=== PATIENT | female | born 1930 | race Caucasian/White ===

== ENCOUNTER 2016-10-05 10:51 | Inpatient (IN) | payer MEDICARE, OTHER ==
[2016-10-05] MEDS ORDERED: RINGERS SOLUTION,LACTATED 1,000 ML IV PRN (11:57)
[2016-10-05 12:51] LABS: HEMATOCRIT 41.1 % (36.0-47.0); HEMOGLOBIN 13.1 g/dL (12.0-15.5); HGB HCT DIFFERENCE -1.8; MEAN CORPUSCULAR HEMOGLOBIN 26.7 pg (27.0-33.4); MEAN CORPUSCULAR HGB CONC 31.9 g/dL (32.0-36.0); MEAN CORPUSCULAR VOLUME 84 fl (80-97); RED CELL DISTRIBUTION WIDTH 14.1 % (11.5-14.0); WHITE BLOOD COUNT 13.2 10^3/uL (4.0-10.5)
[2016-10-05 13:12] LABS: ARTERIAL BLOOD BASE EXCESS 6.2 mmol/L
[2016-10-05 13:12] LABS: ALANINE AMINOTRANSFERASE 27 U/L (9-52); ALBUMIN 3.2 g/dL (3.5-5.0); ALKALINE PHOSPHATASE 69 U/L (38-126); ANION GAP 12 (5-19); ASPARTATE AMINO TRANSFERASE 37 U/L (14-36); BILIRUBIN,TOTAL 0.5 mg/dL (0.2-1.3); BLOOD UREA NITROGEN 19 mg/dL (7-20); CARBON DIOXIDE 30 mmol/L (22-30); CHLORIDE 89 mmol/L (98-107); CREATININE RESULT 1.18 mg/dL (0.52-1.25); GLUCOSE 198 mg/dL (75-110); POTASSIUM 3.4 mmol/L (3.6-5.0); SODIUM 131.2 mmol/L (137-145); TOTAL PROTEIN 6.1 g/dL (6.3-8.2)
[2016-10-05] MEDS: NORMAL SALINE 1000 ML 1,000 ML IV PRN (13:15)
[2016-10-05 13:44] LABS: THYROID STIMULATING HORMONE 2.25 uIU/mL (0.47-4.68)
[2016-10-05] MEDS: CEFTRIAXONE 1 GM/D5W RTU 1 GM/50 ML RTUPB IV SCH (14:37)
[2016-10-05] MEDS ORDERED: LEVOFLOXACIN 500 MG/D5W RTU 500 MG/100 ML RTUPB IV ONE (15:00)
--- NOTE | 2016-10-05 15:00 | EKG REPORT ---
SEVERITY:- ABNORMAL ECG - SINUS TACHYCARDIA WITH IRREGULAR RATE 92-127 PROBABLE LEFT VENTRICULAR HYPERTROPHY CONSIDER INFERIOR INFARCT ATRIAL PREMATURE COMPLEXES : Confirmed by: Casandra Mccarthy 05-Oct-2016 14:59:56
[2016-10-05] MEDS ORDERED: IPRATROPIUM/ALBUTEROL 0.5-2.5 MG/3 ML AMPUL NEB PRN (19:49)
[2016-10-05] MEDS ORDERED: DEXTROSE 50%-WATER 25 GM/50 ML DISP.SYRIN IV PRN ×2 (20:09)
[2016-10-05] MEDS ORDERED: DEXTROSE 40% GEL 15 GM TUBE PO PRN ×2 (20:09)
[2016-10-05] MEDS ORDERED: GLUCAGON,HUMAN RECOMB 1 MG INJ IM PRN (20:09)
--- NOTE | 2016-10-05 20:09 | PDOC H&P ---
History of Present Illness Admission Date/PCP: 10/05/16 10:51 AMANDA LOPEZ, History of Present Illness: JESSA QUINN is a 86 year old female with type II diabetes mellitus, she came to the office today for scheduled appointment, she complained of productive cough for the last few days, fever, chills, she said she was supposed to have come to the office for evaluation of her symptoms, but she decided to come today because she has schedule appointment, in the office, she was evaluated, she was found to have a low oxygen saturation on pulse oximetry it was 86% on auscultation,There was crackles in the left lung field and the blood pressure was low about 80 systolic, because of all this findings in the office, she was admitted directly into the hospital. Chest x-ray was done it showed patchy air space disease in the left mid and lower lung , worrisome for pneumonia. There was leukocytosis, WBC was 13,000 with hyponatremia and hypokalemia Past Medical History Cardiac Medical History: Reports: Coronary Artery Disease - STENTS X 3 , Hypertension - LISINOPRIL,HCTZ Endocrine Medical History: Reports: Diabetes Mellitus Type 2 Musculoskeltal Medical History: Reports: Arthritis Psychiatric Medical History: Denies: Depression Past Surgical History Past Surgical History: Reports: Cardiac Catheterization, Coronary Stent, Hysterectomy Social History Smoking Status: Current Every Day Smoker Last Time Smoked: 3 WEEKS AGO Frequency of Alcohol Use: Social Hx Recreational Drug Use: No Drugs: None Hx Prescription Drug Abuse: No Family History Parental Family History Reviewed: Yes Children Family History Reviewed: Yes Sibling(s) Family History Reviewed.: Yes Medication/Allergy Home Medications: Aspirin [Aspirin 81 mg Chewable Tablet] 1 tab PO DAILY 11/05/14 Atorvastatin Calcium 1 tab PO QHS 11/05/14 Glimepiride [Amaryl] 1 tab PO DAILY 11/05/14 Hydrochlorothiazide [Hydrodiuril 25 mg Tablet] 25 mg PO QAM 11/05/14 Losartan Potassium 100 mg PO DAILY 11/05/14 Metoprolol Succinate [Toprol Xl 25 mg Tab.sr] 1 tab PO DAILY 11/05/14 Pioglitazone HCl [Actos 30 mg Tablet] 30 mg PO DAILY 11/05/14 Sitagliptin Phosphate [Januvia] 1 tab PO DAILY 11/05/14 Vit C/E/Zn/Coppr/Lutein/Zeaxan [Preservision Areds 2 Softgel] 1 tab PO DAILY Allergies/Adverse Reactions: No Known Allergies Allergy (Unverified 11/05/14 08:25) Review of Systems Constitutional: PRESENT: anorexia, chills, fever(s), night sweats Cardiovascular: ABSENT: chest pain, dyspnea on exertion, edema, orthropnea, palpitations Respiratory: PRESENT: cough, sputum Gastrointestinal: ABSENT: abdominal pain, constipation, diarrhea, hematemesis, hematochezia, nausea, vomiting Genitourinary: ABSENT: dysuria, hematuria Musculoskeletal: ABSENT: joint swelling Integumentary: ABSENT: rash, wounds Neurological: ABSENT: abnormal gait, abnormal speech, confusion, dizziness, focal weakness, syncope Psychiatric: ABSENT: anxiety, depression, homidical ideation, suicidal ideation Endocrine: ABSENT: cold intolerance, heat intolerance, menstrual abnormalities, polydipsia, polyuria Hematologic/Lymphatic: ABSENT: easy bleeding, easy bruising, lymphadenopathy Physical Exam Vital Signs: Temp Pulse Resp BP Pulse Ox 100.2 F 103 H 20 141/54 H 93 10/05/16 14:56 10/05/16 16:10 10/05/16 14:56 10/05/16 14:56 10/05/16 14:56 Intake & Output 10/04/16 10/05/16 10/06/16 06:59 06:59 06:59 Intake Total 690 Balance 690 Weight 93.81 kg General appearance: PRESENT: well-developed, well-nourished Head exam: PRESENT: atraumatic, normocephalic Eye exam: PRESENT: conjunctiva pink, EOMI, PERRLA Neck exam: PRESENT: full ROM. ABSENT: carotid bruit, JVD, lymphadenopathy, thyromegaly Respiratory exam: PRESENT: crackles Cardiovascular exam: PRESENT: +S1, +S2 Pulses: PRESENT: normal dorsalis pedis pul, +2 pedal pulses bilateral Vascular exam: PRESENT: normal capillary refill GI/Abdominal exam: PRESENT: normal bowel sounds, soft Rectal exam: PRESENT: deferred Neurological exam: PRESENT: alert, awake, oriented to person, oriented to place , oriented to time, oriented to situation, CN II-XII grossly intact Psychiatric exam: PRESENT: appropriate affect, normal mood Skin exam: PRESENT: dry, intact, warm Results Laboratory Results: 10/05/16 12:35 10/05/16 12:35 10/05/16 10/05/16 10/05/16 12:35 12:35 12:35 WBC 13.2 H RBC 4.90 Hgb 13.1 Hct 41.1 MCV 84 MCH 26.7 L MCHC 31.9 L RDW 14.1 H Plt Count 150 Carbonic Acid HCO3/H2CO3 Ratio ABG pH ABG pCO2 ABG pO2 ABG HCO3 ABG O2 Saturation ABG Base Excess FiO2 Sodium 131.2 L Potassium 3.4 L Chloride 89 L Carbon Dioxide 30 Anion Gap 12 BUN 19 Creatinine 1.18 Est GFR ( Amer) 53 L Est GFR (Non-Af Amer) 44 L Glucose 198 H Calcium 8.0 L Total Bilirubin 0.5 AST 37 H ALT 27 Alkaline Phosphatase 69 Total Protein 6.1 L Albumin 3.2 L TSH 2.25 Free T4 1.24 10/05/16 12:47 WBC RBC Hgb Hct MCV MCH MCHC RDW Plt Count Carbonic Acid 1.22 HCO3/H2CO3 Ratio 24:1 ABG pH 7.49 H ABG pCO2 40.6 ABG pO2 69.1 L ABG HCO3 30.1 H ABG O2 Saturation 95.0 ABG Base Excess 6.2 FiO2 2 L Sodium Potassium Chloride Carbon Dioxide Anion Gap BUN Creatinine Est GFR ( Amer) Est GFR (Non-Af Amer) Glucose Calcium Total Bilirubin AST ALT Alkaline Phosphatase Total Protein Albumin TSH Free T4 Impressions: Chest X-Ray 10/05/16 00:00 IMPRESSION: Patchy left-sided airspace disease worrisome for early or developing pneumonia Assessment & Plan - Diagnosis (1) Pneumonia Qualifiers: Pneumonia type: due to unspecified organism Laterality: left Lung location: lower lobe of lung Qualified Code(s): J18.1 - Lobar pneumonia, unspecified organism Is this a current diagnosis for this admission?: YesPlan: She has,, community-acquired pneumonia she will be treated with IV antibiotic, intravenous Levaquin and Rocephin (2) Acute hypoxemic respiratory failure Is this a current diagnosis for this admission?: YesPlan: The PO2/FiO2 ratio is less than 200, she is presently not requiring BiPAP. She is requiring nasal cannula oxygen 2 L (3) Hyponatremia Is this a current diagnosis for this admission?: YesPlan: She has hyponatremia will request a serum osmolality and urine osmolality and urine sodium to further classify the cause of the hyponatremia (4) Hypokalemia Is this a current diagnosis for this admission?: Yes (5) Hypotension Qualifiers: Hypotension type: unspecified hypotension type Qualified Code(s): I95.9 - Hypotension, unspecified Is this a current diagnosis for this admission?: Yes (6) Diabetes mellitus type II, uncontrolled Qualifiers: Diabetes mellitus complication status: with neurologic complications Diabetes mellitus complication detail: with polyneuropathy Diabetes mellitus longterm insulin use: without laborer marine terminal use Qualified Code(s): E11.42 - Type 2 diabetes mellitus with diabetic polyneuropathy; E11.65 - Type 2 diabetes mellitus with hyperglycemia Is this a current diagnosis for this admission?: Yes
[2016-10-05 21:46] LABS: CREATINE KINASE MB 2.58 ng/mL (<4.55); TROPONIN I 0.055 ng/mL
[2016-10-05] MEDS: INSULIN LISPRO 100 UNIT/ML 3 ML VIAL SUBCUT PRN (22:51)
[2016-10-05 22:53] LABS: APPEARANCE,URINE SLIGHTLY-CLOUDY; BILIRUBIN,URINE NEGATIVE (NEGATIVE); GLUCOSE, URINE NEGATIVE (NEGATIVE); KETONES,URINE NEGATIVE (NEGATIVE); LEUKOCYTE ESTERASE,URINE NEGATIVE (NEGATIVE); NITRITE,URINE NEGATIVE (NEGATIVE); PROTEIN,URINE >=500 mg/dL (NEGATIVE); UROBILINOGEN,URINE NEGATIVE mg/dL (<2.0)
[2016-10-06 05:41] LABS: ABSOLUTE MONOCYTES (AUTO) 0.9 10^3/uL (0.1-1.4); BASOPHILS % (AUTO) 0.2 % (0-2); EOSINOPHILS % (AUTO) 0.1 % (0-6); HEMATOCRIT 36.5 % (36.0-47.0); HEMOGLOBIN 11.9 g/dL (12.0-15.5); HGB HCT DIFFERENCE -0.8; LYMPHOCYTES % (AUTO) 19.9 % (13-45); MEAN CORPUSCULAR HEMOGLOBIN 27.3 pg (27.0-33.4); MEAN CORPUSCULAR HGB CONC 32.5 g/dL (32.0-36.0); MEAN CORPUSCULAR VOLUME 84 fl (80-97); MONOCYTES % (AUTO) 9.4 % (3-13); RED BLOOD COUNT 4.34 10^6/uL (3.72-5.28); RED CELL DISTRIBUTION WIDTH 14.1 % (11.5-14.0); SEGMENTED NEUTROPHILS % (AUTO) 70.4 % (42-78)
[2016-10-06 06:06] LABS: ALANINE AMINOTRANSFERASE 29 U/L (9-52); ALKALINE PHOSPHATASE 60 U/L (38-126); ANION GAP 10 (5-19); ASPARTATE AMINO TRANSFERASE 38 U/L (14-36); BILIRUBIN,TOTAL 0.5 mg/dL (0.2-1.3); BLOOD UREA NITROGEN 27 mg/dL (7-20); CALCIUM 7.7 mg/dL (8.4-10.2); CARBON DIOXIDE 27 mmol/L (22-30); CHLORIDE 94 mmol/L (98-107); CREATININE RESULT 1.18 mg/dL (0.52-1.25); GLUCOSE 135 mg/dL (75-110); POTASSIUM 3.4 mmol/L (3.6-5.0); SODIUM 131.2 mmol/L (137-145); TOTAL PROTEIN 5.5 g/dL (6.3-8.2)
[2016-10-06 06:19] LABS: URINE POTASSIUM 30.8 mmol/L (22-164)
[2016-10-06] MEDS ORDERED: ENOXAPARIN SODIUM INJ 40 MG/0.4 ML DISP.SYRIN SUBCUT SCH (08:00)
[2016-10-06] MEDS: NORMAL SALINE 1000 ML 1,000 ML IV PRN (09:00)
[2016-10-06] MEDS: ENOXAPARIN SODIUM INJ 40 MG/0.4 ML DISP.SYRIN SUBCUT SCH (10:51)
[2016-10-06] MEDS: CEFTRIAXONE 1 GM/D5W RTU 1 GM/50 ML RTUPB IV SCH (14:55)
[2016-10-06] MEDS ORDERED: LEVOFLOXACIN 250 MG/D5W RTU 250 MG/50 ML RTUPB IV SCH (18:00)
[2016-10-06] MEDS ORDERED: LANSOPRAZOLE 30 MG TAB.RAP.DR PO ONE (18:15)
[2016-10-06] MEDS ORDERED: POTASSIUM CHLORIDE 10 MEQ TABLET.SA PO SCH (18:30)
--- NOTE | 2016-10-06 18:34 | PDOC PROGRESS REPORT ---
Subjective Progress Note for:: 10/06/16 Subjective:: Patient continue to experience significant wet cough with difficulty expectorating. She reported epigastric region discomfort due to coughing spells. Episodes of chills and breaking out in sweats persist. No definite fever. Tolerating oral intake. No nausea or vomiting. No chest pain. Patient reported some puffiness to her legs and feet. Physical Exam Vital Signs: Temp Pulse Resp BP Pulse Ox 97.4 F 115 H 17 93/69 L 93 10/06/16 16:30 10/06/16 18:08 10/06/16 18:08 10/06/16 16:30 10/06/16 16:30 Intake & Output 10/05/16 10/06/16 10/07/16 06:59 06:59 06:59 Intake Total 1748 120 Output Total 200 Balance 1748 -80 Weight 93.81 kg 93 kg General appearance: PRESENT: no acute distress - Remain on supplemental oxygen via nasal cannula at 2L/min, obese Head exam: PRESENT: atraumatic, normocephalic Eye exam: PRESENT: conjunctiva pink, EOMI, PERRLA. ABSENT: conjunctival injection, conjunctiva pale, nystagmus, periorbital swelling, scleral icterus, other Ear exam: PRESENT: normal external ear exam Mouth exam: PRESENT: moist, tongue midline Throat exam: ABSENT: post pharyngeal erythema, tonsillar erythema, tonsillar exudate, tonsillogmegaly, other Neck exam: PRESENT: full ROM. ABSENT: carotid bruit, JVD, lymphadenopathy, thyromegaly Respiratory exam: PRESENT: crackles, decreased breath sounds - at lung bases, rhonchi - minimal expiratory phase. ABSENT: accessory muscle use, chest wall tenderness, clear to auscultation cece, prolonged expiratory phas, rales, retraction, stridor, symmetrical, tachypnea, unlabored, wheezes, other Cardiovascular exam: PRESENT: systolic murmur - 2/6 at A2 site. Murmur grade: 2 Vascular exam: PRESENT: normal capillary refill, pallor GI/Abdominal exam: PRESENT: tenderness - minimal, epigastric region to deep palpation. ABSENT: ascites, diminished bowel sounds, distended, firm, guarding , hernia, hyperactive bowel sounds, hypoactive bowel sounds, mass, Fernandes's sign , normal bowel sounds, organolmegaly, rebound, rigid, soft, other Extremities exam: PRESENT: full ROM, pedal edema - Ni significant pitting edema Musculoskeletal exam: PRESENT: ambulatory, full ROM Neurological exam: PRESENT: alert, awake, oriented to person, oriented to place , oriented to time, oriented to situation, CN II-XII grossly intact. ABSENT: motor sensory deficit Psychiatric exam: PRESENT: appropriate affect, normal mood. ABSENT: homicidal ideation, suicidal ideation Skin exam: PRESENT: dry, intact, warm. ABSENT: cyanosis, rash Results Laboratory Results: 10/06/16 05:20 10/06/16 05:20 10/05/16 10/05/16 10/05/16 19:48 22:01 22:01 WBC RBC Hgb Hct MCV MCH MCHC RDW Plt Count Seg Neutrophils % Lymphocytes % Monocytes % Eosinophils % Basophils % Absolute Neutrophils Absolute Lymphocytes Absolute Monocytes Absolute Eosinophils Absolute Basophils Sodium Potassium Chloride Carbon Dioxide Anion Gap BUN Creatinine Est GFR ( Amer) Est GFR (Non-Af Amer) Glucose Serum Osmolality 274 L Calcium Total Bilirubin AST ALT Alkaline Phosphatase Total Protein Albumin Urine Color YELLOW Urine Appearance SLIGHTLY-CLOUDY Urine pH 5.0 Ur Specific [place] 1.020 Urine Protein >=500 H Urine Glucose (UA) NEGATIVE Urine Ketones NEGATIVE Urine Blood MODERATE H Urine Nitrite NEGATIVE Ur Leukocyte Esterase NEGATIVE Urine WBC (Auto) 9 Urine RBC (Auto) 1 Urine Osmolality 482 10/06/16 10/06/16 05:20 05:20 WBC 10.0 RBC 4.34 Hgb 11.9 L Hct 36.5 MCV 84 MCH 27.3 MCHC 32.5 RDW 14.1 H Plt Count 138 L Seg Neutrophils % 70.4 Lymphocytes % 19.9 Monocytes % 9.4 Eosinophils % 0.1 Basophils % 0.2 Absolute Neutrophils 7.0 Absolute Lymphocytes 2.0 Absolute Monocytes 0.9 Absolute Eosinophils 0.0 Absolute Basophils 0.0 Sodium 131.2 L Potassium 3.4 L Chloride 94 L Carbon Dioxide 27 Anion Gap 10 BUN 27 H Creatinine 1.18 Est GFR ( Amer) 53 L Est GFR (Non-Af Amer) 44 L Glucose 135 H Serum Osmolality Calcium 7.7 L Total Bilirubin 0.5 AST 38 H ALT 29 Alkaline Phosphatase 60 Total Protein 5.5 L Albumin 3.0 L Urine Color Urine Appearance Urine pH Ur Specific [place] Urine Protein Urine Glucose (UA) Urine Ketones Urine Blood Urine Nitrite Ur Leukocyte Esterase Urine WBC (Auto) Urine RBC (Auto) Urine Osmolality 10/05/16 10/05/16 20:23 20:23 Creatine Kinase 686 H CK-MB (CK-2) 2.58 Troponin I 0.055 Impressions: Chest X-Ray 10/05/16 00:00 IMPRESSION: Patchy left-sided airspace disease worrisome for early or developing pneumonia Assessment & Plan - Diagnosis (1) Diabetes mellitus type II, uncontrolled Qualifiers: Diabetes mellitus complication status: with neurologic complications Diabetes mellitus complication detail: with polyneuropathy Diabetes mellitus pay agent insulin use: without pay agent use Qualified Code(s): E11.42 - Type 2 diabetes mellitus with diabetic polyneuropathy; E11.65 - Type 2 diabetes mellitus with hyperglycemia; Z79.4 - FPC (current) use of insulin Is this a current diagnosis for this admission?: YesPlan: Continue current mediation management. (2) Hypokalemia Is this a current diagnosis for this admission?: YesPlan: Patient will receive potassium supplementation. I will request serum magnesium level evaluation for possible replacement if necessary. (3) Hyponatremia Is this a current diagnosis for this admission?: YesPlan: I will d/c IV N/S in view of her hx of CKD and reported leg and feet puffiness. Repeat CMP in AM. (4) Hypotension Qualifiers: Hypotension type: unspecified hypotension type Qualified Code(s): I95.9 - Hypotension, unspecified Is this a current diagnosis for this admission?: YesPlan: Continue current management and monitoring. May need adjustment in anti HTN medication dosage if hypotension persist. (5) Pneumonia Qualifiers: Pneumonia type: due to unspecified organism Laterality: left Lung location: lower lobe of lung Qualified Code(s): J18.1 - Lobar pneumonia, unspecified organism Is this a current diagnosis for this admission?: YesPlan: Continue IV Levofloxacin and Rocephin coverage. Encouraged use of bedside Flutter device. Start on Mucinex ER 600 mg po bid for management of her coughing spells. - Time Time Spent with patient: 25-34 minutes Medications reviewed and adjusted accordingly: Yes Anticipated discharge: Home with Homehealth - Inpatient Certification Based on my medical assessment, after consideration of the patient's comorbidities, presenting symptoms, or acuity I expect that the services needed warrant INPATIENT care.: Yes I certify that my determination is in accordance with my understanding of Medicare's requirements for reasonable and necessary INPATIENT services [42 CFR 412.3e].: Yes Medical Necessity: Need Close Monitoring Due to Risk of Patient Decompensation, Need For IV Fluids, Need for IV Antibiotics, Risk of Complication if Not Cared For in Hospital 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
[2016-10-06] MEDS: MAGNESIUM SULFATE 1 GM/D5W 100 ML IV SCH ×2 (20:42→22:12)
[2016-10-06] MEDS: GUAIFENESIN 600 MG TABLET.SA PO SCH (22:08)
[2016-10-06] MEDS: INSULIN LISPRO 100 UNIT/ML 3 ML VIAL SUBCUT PRN (22:27)
[2016-10-07] MEDS: LANSOPRAZOLE 30 MG TAB.RAP.DR PO SCH (05:30)
[2016-10-07 06:40] LABS: ABSOLUTE LYMPHOCYTES (AUTO) 1.4 10^3/uL (0.5-4.7); ABSOLUTE MONOCYTES (AUTO) 1.1 10^3/uL (0.1-1.4); ABSOLUTE NEUT (AUTO) 7.1 10^3/uL (1.7-8.2); BASOPHILS % (AUTO) 0.1 % (0-2); EOSINOPHILS % (AUTO) 0.3 % (0-6); HEMATOCRIT 36.8 % (36.0-47.0); HEMOGLOBIN 12.1 g/dL (12.0-15.5); HGB HCT DIFFERENCE -0.5; LYMPHOCYTES % (AUTO) 14.6 % (13-45); MEAN CORPUSCULAR HEMOGLOBIN 27.5 pg (27.0-33.4); MEAN CORPUSCULAR VOLUME 83 fl (80-97); MONOCYTES % (AUTO) 11.4 % (3-13); RED BLOOD COUNT 4.41 10^6/uL (3.72-5.28); RED CELL DISTRIBUTION WIDTH 14.3 % (11.5-14.0); SEGMENTED NEUTROPHILS % (AUTO) 73.6 % (42-78); WHITE BLOOD COUNT 9.6 10^3/uL (4.0-10.5)
[2016-10-07 08:29] LABS: BLOOD UREA NITROGEN 28 mg/dL (7-20); CALCIUM 7.9 mg/dL (8.4-10.2); CARBON DIOXIDE 26 mmol/L (22-30); CHLORIDE 97 mmol/L (98-107); CREATININE RESULT 1.04 mg/dL (0.52-1.25); GLUCOSE 142 mg/dL (75-110); POTASSIUM 4.7 mmol/L (3.6-5.0)
[2016-10-07 08:30] LABS: ALANINE AMINOTRANSFERASE 35 U/L (9-52); ALBUMIN 2.8 g/dL (3.5-5.0); ALKALINE PHOSPHATASE 63 U/L (38-126); ANION GAP 11 (5-19); ASPARTATE AMINO TRANSFERASE 40 U/L (14-36); BILIRUBIN,TOTAL 0.5 mg/dL (0.2-1.3); SODIUM 133.9 mmol/L (137-145); TOTAL PROTEIN 5.8 g/dL (6.3-8.2)
[2016-10-07] MEDS: GUAIFENESIN 600 MG TABLET.SA PO SCH ×2 (09:50→21:13)
[2016-10-07] MEDS: ENOXAPARIN SODIUM INJ 40 MG/0.4 ML DISP.SYRIN SUBCUT SCH (09:51)
[2016-10-07] MEDS: CEFTRIAXONE 1 GM/D5W RTU 1 GM/50 ML RTUPB IV SCH (14:27)
--- NOTE | 2016-10-07 16:04 | PDOC PROGRESS REPORT ---
Subjective Progress Note for:: 10/07/16 Subjective:: Patient reported improvement in her coughing spells. Breathing has greatly improved. No chills or fever. No nausea or vomiting. Tolerating oral feeding. No chest pain. Improved feet puffiness. Physical Exam Vital Signs: Temp Pulse Resp BP Pulse Ox 98.1 F 90 20 112/62 96 10/07/16 11:49 10/07/16 14:00 10/07/16 11:49 10/07/16 11:49 10/07/16 11:49 Intake & Output 10/06/16 10/07/16 10/08/16 06:59 06:59 06:59 Intake Total 1748 1738 520 Output Total 200 Balance 1748 1538 520 Weight 93.81 kg 96.116 kg General appearance: PRESENT: no acute distress, obese, well-developed, well- nourished Head exam: PRESENT: atraumatic, normocephalic Eye exam: PRESENT: conjunctiva pink, EOMI, PERRLA. ABSENT: scleral icterus Neck exam: PRESENT: full ROM. ABSENT: carotid bruit, JVD, lymphadenopathy, thyromegaly Respiratory exam: ABSENT: accessory muscle use, chest wall tenderness, clear to auscultation cece, crackles, decreased breath sounds, prolonged expiratory phas, rales, retraction, rhonchi, stridor, symmetrical, tachypnea, unlabored, wheezes , other Cardiovascular exam: PRESENT: RRR. ABSENT: diastolic murmur, rubs, systolic murmur Murmur grade: 2 GI/Abdominal exam: PRESENT: normal bowel sounds, soft. ABSENT: distended, guarding, mass, organolmegaly, rebound, tenderness Extremities exam: PRESENT: full ROM Musculoskeletal exam: PRESENT: ambulatory, full ROM, normal inspection Neurological exam: PRESENT: alert, awake, oriented to person, oriented to place , oriented to time, oriented to situation, CN II-XII grossly intact. ABSENT: motor sensory deficit Psychiatric exam: PRESENT: appropriate affect, normal mood. ABSENT: homicidal ideation, suicidal ideation Skin exam: PRESENT: dry, intact, warm. ABSENT: cyanosis, rash Results Laboratory Results: 10/07/16 06:05 10/07/16 07:47 10/06/16 10/06/16 10/07/16 05:20 19:13 06:05 WBC 9.6 RBC 4.41 Hgb 12.1 Hct 36.8 MCV 83 MCH 27.5 MCHC 33.0 RDW 14.3 H Plt Count 157 Seg Neutrophils % 73.6 Lymphocytes % 14.6 Monocytes % 11.4 Eosinophils % 0.3 Basophils % 0.1 Absolute Neutrophils 7.1 Absolute Lymphocytes 1.4 Absolute Monocytes 1.1 Absolute Eosinophils 0.0 Absolute Basophils 0.0 Sodium Potassium Chloride Carbon Dioxide Anion Gap BUN Creatinine Est GFR ( Amer) Est GFR (Non-Af Amer) Glucose Calcium Magnesium Cancelled 1.1 L* Total Bilirubin AST ALT Alkaline Phosphatase Total Protein Albumin 10/07/16 10/07/16 06:05 07:47 WBC RBC Hgb Hct MCV MCH MCHC RDW Plt Count Seg Neutrophils % Lymphocytes % Monocytes % Eosinophils % Basophils % Absolute Neutrophils Absolute Lymphocytes Absolute Monocytes Absolute Eosinophils Absolute Basophils Sodium Cancelled 133.9 L Potassium Cancelled 4.7 Chloride Cancelled 97 L Carbon Dioxide Cancelled 26 Anion Gap Cancelled 11 BUN Cancelled 28 H Creatinine Cancelled 1.04 Est GFR ( Amer) Cancelled > 60 Est GFR (Non-Af Amer) Cancelled 50 L Glucose Cancelled 142 H Calcium Cancelled 7.9 L Magnesium Total Bilirubin Cancelled 0.5 AST Cancelled 40 H ALT Cancelled 35 Alkaline Phosphatase Cancelled 63 Total Protein Cancelled 5.8 L Albumin Cancelled 2.8 L 10/05/16 10/05/16 20:23 20:23 Creatine Kinase 686 H CK-MB (CK-2) 2.58 Troponin I 0.055 Impressions: Chest X-Ray 10/05/16 00:00 IMPRESSION: Patchy left-sided airspace disease worrisome for early or developing pneumonia Assessment & Plan - Diagnosis (1) Diabetes mellitus type II, uncontrolled Qualifiers: Diabetes mellitus complication status: with neurologic complications Diabetes mellitus complication detail: with polyneuropathy Diabetes mellitus intermodal dispatcher insulin use: without mcc use Qualified Code(s): E11.42 - Type 2 diabetes mellitus with diabetic polyneuropathy; E11.65 - Type 2 diabetes mellitus with hyperglycemia; Z79.4 - exterminator helper (current) use of insulin Is this a current diagnosis for this admission?: Yes (2) Hypokalemia Is this a current diagnosis for this admission?: Yes (3) Hyponatremia Is this a current diagnosis for this admission?: Yes (4) Hypotension Qualifiers: Hypotension type: unspecified hypotension type Qualified Code(s): I95.9 - Hypotension, unspecified Is this a current diagnosis for this admission?: Yes (5) Pneumonia Qualifiers: Pneumonia type: due to unspecified organism Laterality: left Lung location: lower lobe of lung Qualified Code(s): J18.1 - Lobar pneumonia, unspecified organism Is this a current diagnosis for this admission?: YesPlan: D/C IV Levofloxacin and Rocephin coverage. Start on Levofloxacin 500 mg p.o daily. Encouraged use of bedside Flutter device. - Time Time Spent with patient: 25-34 minutes Critical Time spent with patient: Less than 15 minutes - no critical time spent. Not able to delete on system. Anticipated discharge: Home - Inpatient Certification Based on my medical assessment, after consideration of the patient's comorbidities, presenting symptoms, or acuity I expect that the services needed warrant INPATIENT care.: Yes I certify that my determination is in accordance with my understanding of Medicare's requirements for reasonable and necessary INPATIENT services [42 CFR 412.3e].: Yes Medical Necessity: Significant Comorbidiites Make Outpatient Treatment Too Risky , Need for IV Antibiotics, Risk of Complication if Not Cared For in Hospital - Plan Summary Plan Summary: See covering attending orders.
[2016-10-07] MEDS ORDERED: LEVOFLOXACIN 500 MG TABLET PO SCH (18:00)
[2016-10-07] MEDS: INSULIN LISPRO 100 UNIT/ML 3 ML VIAL SUBCUT PRN (21:39)
[2016-10-08] MEDS: LANSOPRAZOLE 30 MG TAB.RAP.DR PO SCH (05:14)
[2016-10-08 06:38] LABS: ABSOLUTE EOSINOPHILS # (AUTO) 0.1 10^3/uL (0.0-0.6); ABSOLUTE LYMPHOCYTES (AUTO) 1.3 10^3/uL (0.5-4.7); ABSOLUTE NEUT (AUTO) 6.3 10^3/uL (1.7-8.2); BASOPHILS % (AUTO) 0.3 % (0-2); HEMATOCRIT 37.8 % (36.0-47.0); HEMOGLOBIN 12.4 g/dL (12.0-15.5); HGB HCT DIFFERENCE -0.6; MEAN CORPUSCULAR HEMOGLOBIN 27.5 pg (27.0-33.4); MEAN CORPUSCULAR HGB CONC 32.8 g/dL (32.0-36.0); MEAN CORPUSCULAR VOLUME 84 fl (80-97); MONOCYTES % (AUTO) 11.5 % (3-13); RED CELL DISTRIBUTION WIDTH 14.5 % (11.5-14.0); SEGMENTED NEUTROPHILS % (AUTO) 72.2 % (42-78); WHITE BLOOD COUNT 8.7 10^3/uL (4.0-10.5)
[2016-10-08 06:57] LABS: ALANINE AMINOTRANSFERASE 31 U/L (9-52); ALBUMIN 3.1 g/dL (3.5-5.0); ALKALINE PHOSPHATASE 65 U/L (38-126); ANION GAP 8 (5-19); ASPARTATE AMINO TRANSFERASE 36 U/L (14-36); BILIRUBIN,TOTAL 0.5 mg/dL (0.2-1.3); BLOOD UREA NITROGEN 24 mg/dL (7-20); CALCIUM 8.4 mg/dL (8.4-10.2); CARBON DIOXIDE 30 mmol/L (22-30); CHLORIDE 99 mmol/L (98-107); CREATININE RESULT 0.99 mg/dL (0.52-1.25); GLUCOSE 153 mg/dL (75-110); POTASSIUM 4.4 mmol/L (3.6-5.0); SODIUM 137.2 mmol/L (137-145); TOTAL PROTEIN 6.6 g/dL (6.3-8.2)
[2016-10-08] MEDS: INSULIN LISPRO 100 UNIT/ML 3 ML VIAL SUBCUT PRN ×2 (07:55→12:03)
[2016-10-08] MEDS: ENOXAPARIN SODIUM INJ 40 MG/0.4 ML DISP.SYRIN SUBCUT SCH (07:56)
[2016-10-08] MEDS: GUAIFENESIN 600 MG TABLET.SA PO SCH (09:14)
--- NOTE | 2016-10-08 12:27 | PDOC DISCHARGE SUMMARY ---
General - Admit/Disc Date/PCP Admission Date/Primary Care Provider: 10/05/16 10:51 AMANDA LOPEZ, Discharge Date: 10/08/16 - Discharge Diagnosis (1) Pneumonia Is this a current diagnosis for this admission?: Yes (2) Acute hypoxemic respiratory failure Is this a current diagnosis for this admission?: Yes (3) Hyponatremia Is this a current diagnosis for this admission?: Yes (4) Hypokalemia Is this a current diagnosis for this admission?: Yes (5) Hypotension Is this a current diagnosis for this admission?: Yes (6) Diabetes mellitus type II, uncontrolled Is this a current diagnosis for this admission?: Yes (7) Hyponatremia with extracellular fluid depletion Is this a current diagnosis for this admission?: Yes - Additional Information Home Medications: Aspirin [Aspirin 81 mg Chewable Tablet] 1 tab PO DAILY 11/05/14 Atorvastatin Calcium 1 tab PO QHS 11/05/14 Glimepiride [Amaryl] 1 tab PO DAILY 11/05/14 Hydrochlorothiazide [Hydrodiuril 25 mg Tablet] 25 mg PO QAM 11/05/14 Losartan Potassium 100 mg PO DAILY 11/05/14 Metoprolol Succinate [Toprol Xl 25 mg Tab.sr] 1 tab PO DAILY 11/05/14 Sitagliptin Phosphate [Januvia] 1 tab PO DAILY 11/05/14 Glimepiride [Amaryl] 1 tab PO DAILY 10/05/16 Levofloxacin [Levaquin 500 mg Tablet] 500 mg PO QPM #7 tablet 10/08/16 History of Present Illness History of Present Illness: JESSA QUINN is a 86 year old female with type II diabetes mellitus, she came to the office today for scheduled appointment, she complained of productive cough for the last few days, fever, chills, she said she was supposed to have come to the office for evaluation of her symptoms, but she decided to come today because she has schedule appointment, in the office, she was evaluated, she was found to have a low oxygen saturation on pulse oximetry it was 86% on auscultation,There was crackles in the left lung field and the blood pressure was low about 80 systolic, because of all this findings in the office, she was admitted directly into the hospital. Chest x-ray was done it showed patchy air space disease in the left mid and lower lung , worrisome for pneumonia. There was leukocytosis, WBC was 13,000 with hyponatremia and hypokalemia Hospital Course Hospital Course: Patient was admitted because of acute hypoxemic respiratory failure and systemic inflammatory response syndrome due to pneumonia. That was associated hypovolemic hyponatremia, and hypokalemia due to diuretic use. The blood pressure was also low, suggesting systemic vasodilation due to sepsis. She was treated with IV fluid, normal saline, with normalization of his serum sodium. She was empirically treated with IV antibiotic, Levaquin and ceftriaxone to cover community-acquired pathogens. Patient is improved significantly with this regimen Physical Exam Vital Signs: Temp Pulse Resp BP Pulse Ox 98.1 F 96 22 H 154/54 H 92 10/08/16 11:18 10/08/16 11:18 10/08/16 11:18 10/08/16 11:18 10/08/16 11:18 Intake & Output 10/07/16 10/08/16 10/09/16 06:59 06:59 06:59 Intake Total 1738 1410 Output Total 200 Balance 1538 1410 Weight 96.116 kg 90 kg General appearance: PRESENT: no acute distress, well-developed, well-nourished Head exam: PRESENT: atraumatic, normocephalic Eye exam: PRESENT: conjunctiva pink, EOMI, PERRLA Ear exam: PRESENT: normal external ear exam Mouth exam: PRESENT: moist, tongue midline Neck exam: PRESENT: full ROM Respiratory exam: PRESENT: clear to auscultation cece Cardiovascular exam: PRESENT: +S1, +S2 Murmur grade: 2 GI/Abdominal exam: PRESENT: normal bowel sounds, soft Rectal exam: PRESENT: deferred Neurological exam: PRESENT: alert, awake, oriented to person, oriented to place , oriented to time, oriented to situation, CN II-XII grossly intact. ABSENT: motor sensory deficit Psychiatric exam: PRESENT: appropriate affect, normal mood Skin exam: PRESENT: dry, intact, warm Results Laboratory Results: 10/08/16 06:22 10/08/16 06:22 10/08/16 10/08/16 06:22 06:22 WBC 8.7 RBC 4.50 Hgb 12.4 Hct 37.8 MCV 84 MCH 27.5 MCHC 32.8 RDW 14.5 H Plt Count 222 Seg Neutrophils % 72.2 Lymphocytes % 15.0 Monocytes % 11.5 Eosinophils % 1.0 Basophils % 0.3 Absolute Neutrophils 6.3 Absolute Lymphocytes 1.3 Absolute Monocytes 1.0 Absolute Eosinophils 0.1 Absolute Basophils 0.0 Sodium 137.2 Potassium 4.4 Chloride 99 Carbon Dioxide 30 Anion Gap 8 BUN 24 H Creatinine 0.99 Est GFR ( Amer) > 60 Est GFR (Non-Af Amer) 53 L Glucose 153 H Calcium 8.4 Total Bilirubin 0.5 AST 36 ALT 31 Alkaline Phosphatase 65 Total Protein 6.6 Albumin 3.1 L 10/05/16 10/05/16 20:23 20:23 Creatine Kinase 686 H CK-MB (CK-2) 2.58 Troponin I 0.055 Impressions: Chest X-Ray 10/05/16 00:00 IMPRESSION: Patchy left-sided airspace disease worrisome for early or developing pneumonia Plan Discharge Plan: She will be discharged home today
[2016-10-08 12:29] VITALS: BP 143/57
[2016-10-09 12:38] LABS: CREATININE URINE 41.1 mg/dL (Not Estab.); MICROALBUMIN URINE 335.7 ug/mL (Not Estab.)
[2016-10-11 16:40] LABS: ALBUMIN URINE 60.8 % (.); BETA GLOBULIN UR 11.5 % (.); GAMMA GLOBULIN UR 10.6 % (.); M-SPIKE % URINE Not Observed % (Not Observed)
== END 2016-10-08 12:57 | disposition home or self-care (01) | DRG 193 ==
LOC: 3S 10:51
PROVIDERS: ADMIT Internal Medicine; ATTEND Internal Medicine
PROC: 3E0F73Z Introduction of Anti-inflammatory into Respiratory Tract, Via Natural or Artificial Opening (ICD-10-PCS; principal; 2016-10-06)
DX: J18.1 Lobar pneumonia, unspecified organism (principal); J96.01 Acute respiratory failure with hypoxia; E87.1 Hypo-osmolality and hyponatremia; E87.6 Hypokalemia; I95.9 Hypotension, unspecified; E11.65 Type 2 diabetes mellitus with hyperglycemia; I25.10 Atherosclerotic heart disease of native coronary artery without angina pectoris; I10 Essential (primary) hypertension; M19.90 Unspecified osteoarthritis, unspecified site; E11.42 Type 2 diabetes mellitus with diabetic polyneuropathy; F17.210 Nicotine dependence, cigarettes, uncomplicated; Z79.899 Other long term (current) drug therapy; Z95.5 Presence of coronary angioplasty implant and graft; Z90.710 Acquired absence of both cervix and uterus; Z90.49 Acquired absence of other specified parts of digestive tract; Z86.73 Personal history of transient ischemic attack (TIA), and cerebral infarction without residual deficits; Z88.6 Allergy status to analgesic agent; Z88.8 Allergy status to other drugs, medicaments and biological substances; Z79.4 Long term (current) use of insulin
CPT/HCPCS: 36415; 36600; 71020; 80048; 80053; 80076; 81001; 82043; 82550; 82553; 82570; 82803; 82962; 83036; 83735; 83930; 83935; 84133; 84156; 84166; 84300; 84439; 84443; 84484; 85025; 85027; 86335; 87040; 87086; 93005; 93010; 94640; 94667; J0696; J1650; J1815; J1956; J3475; J3490; J7030; J7620

== ENCOUNTER 2016-10-11 06:54 | Inpatient (IN) | payer MEDICARE, OTHER ==
[2016-10-11] MEDS ORDERED: IPRATROPIUM/ALBUTEROL 0.5-2.5 MG/3 ML AMPUL NEB ONE ×3 (07:54)
[2016-10-11 07:59] LABS: ABSOLUTE BASOPHILS # (AUTO) 0.1 10^3/uL (0.0-0.2); ABSOLUTE EOSINOPHILS # (AUTO) 0.1 10^3/uL (0.0-0.6); ABSOLUTE LYMPHOCYTES (AUTO) 1.6 10^3/uL (0.5-4.7); ABSOLUTE MONOCYTES (AUTO) 1.3 10^3/uL (0.1-1.4); ABSOLUTE NEUT (AUTO) 10.2 10^3/uL (1.7-8.2); BASOPHILS % (AUTO) 0.6 % (0-2); EOSINOPHILS % (AUTO) 0.7 % (0-6); HEMATOCRIT 39.4 % (36.0-47.0); HEMOGLOBIN 12.6 g/dL (12.0-15.5); HGB HCT DIFFERENCE -1.6; LYMPHOCYTES % (AUTO) 12.2 % (13-45); MEAN CORPUSCULAR HEMOGLOBIN 27.1 pg (27.0-33.4); MEAN CORPUSCULAR HGB CONC 32.1 g/dL (32.0-36.0); MEAN CORPUSCULAR VOLUME 84 fl (80-97); MONOCYTES % (AUTO) 9.5 % (3-13); RED BLOOD COUNT 4.67 10^6/uL (3.72-5.28); RED CELL DISTRIBUTION WIDTH 14.5 % (11.5-14.0); WHITE BLOOD COUNT 13.2 10^3/uL (4.0-10.5)
--- NOTE | 2016-10-11 08:01 | ER Document Report ---
ED General - General Chief Complaint: Shortness Of Breath Stated Complaint: SHORTNESS OF BREATH Mode of Arrival: Medic Information source: Patient Notes: 86-year-old female history recent pneumonia who was hypoxic on admission just one week ago. Pt notes that she is not on oxygen at home, felt very sob. pt denies any productive cough. pt states she is unable to ambulate without feeling sob. TRAVEL OUTSIDE OF THE [place] IN LAST 30 DAYS: No - HPI Onset: Last week Onset/Duration: Persistent Quality of pain: No pain Severity: Moderate Pain Level: Denies Associated symptoms: Nonproductive cough, Shortness of breath Exacerbated by: Walking Relieved by: Denies Similar symptoms previously: Yes Recently seen / treated by doctor: Yes - Related Data Allergies/Adverse Reactions: No Known Allergies Allergy (Unverified 11/05/14 08:25) Past Medical History - Social History Smoking Status: Never Smoker Cigarette use (# per day): No Chew tobacco use (# tins/day): No Smoking Education Provided: No Frequency of alcohol use: None Drug Abuse: None Family History: Reviewed & Not Pertinent - Past Medical History Cardiac Medical History: Reports: Hx Coronary Artery Disease - STENTS X 3 , Hx Hypertension - LISINOPRIL,HCTZ Denies: Hx Congestive Heart Failure, Hx Heart Attack, Hx Heart Murmur Pulmonary Medical History: Denies: Hx Asthma, Hx Bronchitis, Hx COPD, Hx Pneumonia, Hx Tuberculosis Neurological Medical History: Denies: Hx Cerebrovascular Accident, Hx Seizures Endocrine Medical History: Reports: Hx Diabetes Mellitus Type 2 Renal/ Medical History: Denies: Hx Peritoneal Dialysis GI Medical History: Denies: Hx Hepatitis, Hx Hiatal Hernia, Hx Ulcer Musculoskeltal Medical History: Reports Hx Arthritis, Denies Hx Muscle Weakness Psychiatric Medical History: Denies: Hx Depression Infectious Medical History: Denies: Hx Hepatitis Past Surgical History: Reports: Hx Cardiac Catheterization, Hx Coronary Stent, Hx Hysterectomy. Denies: Hx Mastectomy, Hx Pacemaker - Immunizations Hx Diphtheria, Pertussis, Tetanus Vaccination: No Hx Pneumococcal Vaccination: 09/23/11 Review of Systems - Review of Systems Notes: REVIEW OF SYSTEMS: CONSTITUTIONAL : Denies fever, chills, or sweats. Denies recent illness. EENT: Denies eye, ear, throat, or mouth pain or symptoms. Denies nasal or sinus congestion or discharge. Denies throat, tongue, or mouth swelling or difficulty swallowing. CARDIOVASCULAR: Denies chest pain. Denies palpitations or racing or irregular heart beat. Denies ankle edema. RESPIRATORY: admits to sob, cough non producitive GASTROINTESTINAL: Denies abdominal pain or distention. Denies nausea, vomiting , or diarrhea. Denies blood in vomitus, stools, or per rectum. Denies black, tarry stools. Denies constipation. GENITOURINARY: Denies difficulty urinating, painful urination, burning, frequency, blood in urine, or discharge. FEMALE GENITOURINARY: Denies vaginal bleeding, heavy or abnormal periods, irregular periods. Denies vaginal discharge or odor. MUSCULOSKELETAL: Denies back or neck pain or stiffness. Denies joint pain or swelling. SKIN: Denies rash, lesions or sores. HEMATOLOGIC : Denies easy bruising or bleeding. LYMPHATIC: Denies swollen, enlarged glands. NEUROLOGICAL: Denies confusion or altered mental status. Denies passing out or loss of consciousness. Denies dizziness or lightheadedness. Denies headache. Denies weakness or paralysis or loss of use of either side. Denies problems with gait or speech. Denies sensory loss, numbness, or tingling. Denies seizures. PSYCHIATRIC: Denies anxiety or stress. Denies depression, suicidal ideation, or homicidal ideation. ALL OTHER SYSTEMS REVIEWED AND NEGATIVE. Dictation was performed using [employer] voice recognition software PHYSICAL EXAMINATION: GENERAL: Well-appearing, well-nourished and in mild resp distress, sating 86% on ra HEAD: Atraumatic, normocephalic. EYES: Pupils equal round and reactive to light, extraocular movements intact, conjunctiva are normal. ENT: Nares patent, oropharynx clear without exudates. Moist mucous membranes. NECK: Normal range of motion, supple without lymphadenopathy LUNGS: faint inspriatroy and expiratroy wheezing all throughout HEART: Regular rate and rhythm without murmurs ABDOMEN: Soft, nontender, nondistended abdomen. No guarding, no rebound. No masses appreciated. Female : deferred Musculoskeletal: Normal range of motion, no pitting or edema. No cyanosis. NEUROLOGICAL: Cranial nerves grossly intact. Normal speech, normal gait. Normal sensory, motor exams PSYCH: Normal mood, normal affect. SKIN: Warm, Dry, normal turgor, no rashes or lesions noted. Physical Exam - Vital signs Vitals: Resp 11 L 10/11/16 07:03 Course - Re-evaluation Re-evalutation: 10/11/16 08:03 I expect readmission for this patient given complaints and presentation of hypoxemia 10/11/16 08:25 Oj paged - Vital Signs Vital signs: Temp Pulse Resp BP Pulse Ox 97.6 F 22 H 121/80 95 10/11/16 07:07 10/11/16 08:00 10/11/16 07:05 10/11/16 08:00 - Laboratory Result Diagrams: 10/11/16 07:38 10/11/16 07:38 Laboratory results interpreted by me: 10/11/16 10/11/16 10/11/16 07:38 07:38 08:33 WBC 13.2 H RDW 14.5 H Lymphocytes % 12.2 L Absolute Neutrophils 10.2 H VBG pH 7.45 H POC Glucose 167 H Critical Care Note - Critical Care Note Total time excluding time spent on procedures (mins): 31 Comments: 31 minutes of critical care time spent in direct contact evaluating and reevaluating the patient, treating symptoms, reviewing labs and studies and speaking with family and consultants excluding any procedures Discharge - Discharge Clinical Impression: Acute hypoxemic respiratory failure Pneumonia Qualifiers: Pneumonia type: due to unspecified organism Laterality: left Lung location: lower lobe of lung Qualified Code(s): J18.1 - Lobar pneumonia, unspecified organism Condition: Stable Disposition: ADMITTED INPATIENT Admitting Provider: [facility] Unit Admitted: Telemetry
[2016-10-11 08:02] LABS: VENOUS BLOOD BASE EXCESS 6.2 mmol/L; VENOUS BLOOD HCO3 31.3 mmol/L (20-32); VENOUS BLOOD PCO2 46.5 mmHg (35-63); VENOUS BLOOD PH 7.45 (7.30-7.42)
--- NOTE | 2016-10-11 08:09 | EKG REPORT ---
SEVERITY:- ABNORMAL ECG - SINUS RHYTHM ATRIAL PREMATURE COMPLEX LEFT AXIS DEVIATION =LAFB. : Confirmed by: Festus Paula MD 11-Oct-2016 08:08:16
[2016-10-11 08:10] LABS: PROTHROMBIN TIME 13.7 SEC (11.4-15.4)
[2016-10-11] MEDS ORDERED: CEFTRIAXONE INJ 1000 MG VIAL IV ONE (08:59)
[2016-10-11] MEDS ORDERED: LEVALBUTEROL HCL NEB 0.63 MG/3 ML AMPUL NEB PRN (09:02)
[2016-10-11 09:34] LABS: ALANINE AMINOTRANSFERASE 43 U/L (9-52); ALBUMIN 3.5 g/dL (3.5-5.0); ALKALINE PHOSPHATASE 72 U/L (38-126); ANION GAP 12 (5-19); ASPARTATE AMINO TRANSFERASE 36 U/L (14-36); BILIRUBIN,TOTAL 0.6 mg/dL (0.2-1.3); BLOOD UREA NITROGEN 19 mg/dL (7-20); CALCIUM 9.5 mg/dL (8.4-10.2); CARBON DIOXIDE 28 mmol/L (22-30); CHLORIDE 96 mmol/L (98-107); CREATININE RESULT 1.05 mg/dL (0.52-1.25); GLUCOSE 151 mg/dL (75-110); MAGNESIUM 1.5 mg/dL (1.6-2.3); PHOSPHORUS 4.4 mg/dL (2.5-4.5); POTASSIUM 4.2 mmol/L (3.6-5.0); SODIUM 135.9 mmol/L (137-145); TOTAL PROTEIN 6.7 g/dL (6.3-8.2)
[2016-10-11 09:48] LABS: APPEARANCE,URINE CLEAR; BILIRUBIN,URINE NEGATIVE (NEGATIVE); GLUCOSE, URINE NEGATIVE (NEGATIVE); KETONES,URINE NEGATIVE (NEGATIVE); LEUKOCYTE ESTERASE,URINE NEGATIVE (NEGATIVE); NITRITE,URINE NEGATIVE (NEGATIVE); PROTEIN,URINE 100 mg/dL (NEGATIVE); UROBILINOGEN,URINE NEGATIVE mg/dL (<2.0)
[2016-10-11 10:03] LABS: THYROID STIMULATING HORMONE 5.1 uIU/mL (0.47-4.68)
[2016-10-11] MEDS: NORMAL SALINE 1000 ML 1,000 ML IV PRN (13:22)
[2016-10-11] MEDS: LEVOFLOXACIN 500 MG/D5W RTU 500 MG/100 ML RTUPB IV SCH (13:22)
[2016-10-11 17:32] LABS: ARTERIAL BLOOD O2 SATURATION 94.1 % (94-98)
[2016-10-12 05:34] LABS: ALANINE AMINOTRANSFERASE 43 U/L (9-52); ALKALINE PHOSPHATASE 59 U/L (38-126); ANION GAP 12 (5-19); ASPARTATE AMINO TRANSFERASE 29 U/L (14-36); BILIRUBIN,TOTAL 0.4 mg/dL (0.2-1.3); BLOOD UREA NITROGEN 20 mg/dL (7-20); CALCIUM 9.1 mg/dL (8.4-10.2); CARBON DIOXIDE 28 mmol/L (22-30); CHLORIDE 97 mmol/L (98-107); CREATININE RESULT 1.15 mg/dL (0.52-1.25); GLUCOSE 100 mg/dL (75-110); POTASSIUM 3.9 mmol/L (3.6-5.0); SODIUM 137.1 mmol/L (137-145); TOTAL PROTEIN 5.7 g/dL (6.3-8.2)
[2016-10-12] MEDS: CEFTRIAXONE 1 GM/D5W RTU 1 GM/50 ML RTUPB IV SCH (10:08)
[2016-10-12] MEDS: ENOXAPARIN SODIUM INJ 40 MG/0.4 ML DISP.SYRIN SUBCUT SCH (10:08)
[2016-10-12] MEDS: NORMAL SALINE 1000 ML 1,000 ML IV PRN (10:09)
[2016-10-12] MEDS: LEVOFLOXACIN 500 MG/D5W RTU 500 MG/100 ML RTUPB IV SCH (12:44)
--- NOTE | 2016-10-12 17:40 | PDOC H&P ---
History of Present Illness Admission Date/PCP: 10/11/16 09:03 AMANDA LOPEZ, History of Present Illness: JESSA QUINN is a 86 year old female with history of diabetes mellitus, she was recently discharged from this hospital on 10/08/2016 when she was admitted for acute hypoxemic respiratory failure due to pneumonia, she came to the emergency room because of shortness of breath, chest x-ray was done that showed improve aeration in the left upper lobe. Subsequent CT chest without contrast was done it showed moderate mixed, interstitial and airspace opacities predominantly in the left upper lobe. ABG was done that showed PO2 64.6 on 2 L. . A VQ scan was done it was negative for pulmonary embolism. Past Medical History Cardiac Medical History: Reports: Coronary Artery Disease - STENTS X 3 , Hypertension - LISINOPRIL,HCTZ Pulmonary Medical History: Reports: Bronchitis Endocrine Medical History: Reports: Diabetes Mellitus Type 2 Musculoskeltal Medical History: Reports: Arthritis Past Surgical History Past Surgical History: Reports: Cardiac Catheterization, Coronary Stent, Hysterectomy Social History Smoking Status: Former Smoker Number of Years Smokin Frequency of Alcohol Use: Rare Hx Recreational Drug Use: No Drugs: None Hx Prescription Drug Abuse: No - Advance Directive Resuscitation Status: Full Code Family History Family History: Reviewed & Not Pertinent Parental Family History Reviewed: Yes Children Family History Reviewed: Yes Sibling(s) Family History Reviewed.: Yes Medication/Allergy Home Medications: Aspirin [Aspirin 81 mg Chewable Tablet] 81 mg PO DAILY 10/11/16 Atorvastatin Calcium 40 mg PO QHS 10/11/16 Glimepiride [Amaryl] 2 mg PO DAILY 10/11/16 Hydrochlorothiazide [Hydrodiuril 25 mg Tablet] 25 mg PO QAM 10/11/16 Losartan Potassium 100 mg PO DAILY 10/11/16 Metoprolol Succinate [Toprol Xl 25 mg Tab.sr] 25 mg PO DAILY 10/11/16 Sitagliptin Phosphate [Januvia] 100 mg PO DAILY 10/11/16 Allergies/Adverse Reactions: No Known Allergies Allergy (Unverified 11/05/14 08:25) Review of Systems Constitutional: PRESENT: fatigue Ears: ABSENT: hearing changes Cardiovascular: PRESENT: dyspnea on exertion Respiratory: PRESENT: cough Endocrine: ABSENT: as per HPI, cold intolerance, flushing, heat intolerance, menstrual abnormalities, polydipsia, polyphagia, polyuria, other Hematologic/Lymphatic: ABSENT: as per HPI, easy bleeding, easy bruising, lymphadenopathy, other Physical Exam Vital Signs: Temp Pulse Resp BP Pulse Ox 97.6 F 98 20 98/64 L 92 10/12/16 11:31 10/12/16 14:00 10/12/16 11:31 10/12/16 11:31 10/12/16 11:31 Intake & Output 10/11/16 10/12/16 10/13/16 06:59 06:59 06:59 Intake Total 2195 236 Output Total 200 Balance 1994 236 Weight 95.4 kg General appearance: PRESENT: no acute distress, well-developed, well-nourished Head exam: PRESENT: atraumatic, normocephalic Eye exam: PRESENT: conjunctiva pink, EOMI, PERRLA Ear exam: PRESENT: normal external ear exam Mouth exam: PRESENT: moist, tongue midline Neck exam: PRESENT: full ROM Respiratory exam: PRESENT: rhonchi Cardiovascular exam: PRESENT: RRR, +S1, +S2 GI/Abdominal exam: PRESENT: normal bowel sounds, soft Rectal exam: PRESENT: deferred Neurological exam: PRESENT: alert, awake, oriented to person, oriented to place , oriented to time, oriented to situation, CN II-XII grossly intact Psychiatric exam: PRESENT: appropriate affect, normal mood Skin exam: PRESENT: dry, intact, warm Results Laboratory Results: 10/12/16 03:44 10/11/16 10/12/16 14:53 03:44 Carbonic Acid 1.22 HCO3/H2CO3 Ratio 24:1 ABG pH 7.49 H ABG pCO2 40.4 ABG pO2 64.6 L ABG HCO3 29.9 H ABG O2 Saturation 94.1 ABG Base Excess 6.0 FiO2 2L Sodium 137.1 Potassium 3.9 Chloride 97 L Carbon Dioxide 28 Anion Gap 12 BUN 20 Creatinine 1.15 Est GFR ( Amer) 54 L Est GFR (Non-Af Amer) 45 L Glucose 100 Calcium 9.1 Total Bilirubin 0.4 AST 29 ALT 43 Alkaline Phosphatase 59 Total Protein 5.7 L Albumin 3.0 L 10/11/16 10/11/16 10/11/16 10:07 15:15 15:15 Creatine Kinase 64 Troponin I < 0.012 < 0.012 10/11/16 10/11/16 21:13 21:13 Creatine Kinase 77 Troponin I 0.012 Impressions: Chest CT 10/11/16 00:00 IMPRESSION: Left upper lobar pneumonia. 7-[address] recommended. Lung Scan-VQ NM 10/11/16 00:00 IMPRESSION: NEGATIVE V/Q scan FOR PULMONARY EMBOLI. Venous Doppler Study 10/11/16 00:00 IMPRESSION: NO EVIDENCE DVT OR SVT IN EITHER LEG. Chest X-Ray 10/11/16 06:59 IMPRESSION: Improving pneumonia. Assessment & Plan - Diagnosis (1) Acute hypoxemic respiratory failure Is this a current diagnosis for this admission?: Yes (2) Pneumonia Qualifiers: Pneumonia type: due to unspecified organism Laterality: left Lung location: upper lobe of lung Qualified Code(s): J18.1 - Lobar pneumonia, unspecified organism Is this a current diagnosis for this admission?: YesPlan: Patient is admitted for management
[2016-10-12] MEDS: ATORVASTATIN CALCIUM 40 MG TABLET PO SCH (21:52)
[2016-10-13] MEDS: NORMAL SALINE 1000 ML 1,000 ML IV PRN ×2 (05:12→17:51)
[2016-10-13] MEDS: ENOXAPARIN SODIUM INJ 40 MG/0.4 ML DISP.SYRIN SUBCUT SCH (09:22)
[2016-10-13] MEDS: CEFTRIAXONE 1 GM/D5W RTU 1 GM/50 ML RTUPB IV SCH (09:23)
[2016-10-13] MEDS: ASPIRIN 81 MG TABLET, CHEWABLE PO SCH (09:24)
[2016-10-13] MEDS: SITAGLIPTIN PHOSPHATE 50 MG TABLET PO SCH (09:24)
[2016-10-13] MEDS: GLIMEPIRIDE 1 MG TABLET PO SCH (09:24)
[2016-10-13] MEDS: METOPROLOL SUCCINATE 25 MG TAB.SR.24H PO SCH (09:25)
[2016-10-13] MEDS: LOSARTAN POTASSIUM 50 MG TABLET PO SCH (09:25)
[2016-10-13] MEDS: HYDROCHLOROTHIAZIDE 25 MG TABLET PO SCH (09:31)
[2016-10-13] MEDS ORDERED: (PENDING PHARMACY ID) (Losartan Potassium [Losartan Potassium] 100 MG) PO SCH (10:00)
[2016-10-13] MEDS: LEVOFLOXACIN 500 MG/D5W RTU 500 MG/100 ML RTUPB IV SCH (12:48)
--- NOTE | 2016-10-13 19:07 | PDOC PROGRESS REPORT ---
Subjective Progress Note for:: 10/12/16 Subjective:: Patient was admitted because of pneumonia, she was seen by the bedside, she is improving slowly Physical Exam Vital Signs: Temp Pulse Resp BP Pulse Ox 97.3 F 73 16 135/62 H 93 10/13/16 07:29 10/13/16 14:00 10/13/16 10:41 10/13/16 07:29 10/13/16 10:41 Intake & Output 10/12/16 10/13/16 10/14/16 06:59 06:59 06:59 Intake Total 2195 2802 1470 Output Total 200 Balance 1994 2802 1470 Weight 95.4 kg General appearance: PRESENT: no acute distress Eye exam: PRESENT: PERRLA Respiratory exam: PRESENT: rales Cardiovascular exam: PRESENT: +S1, +S2 GI/Abdominal exam: PRESENT: soft Neurological exam: PRESENT: alert, CN II-XII grossly intact Results Laboratory Results: 10/12/16 03:44 10/11/16 10/11/16 10/11/16 10:07 15:15 15:15 Creatine Kinase 64 Troponin I < 0.012 < 0.012 10/11/16 10/11/16 21:13 21:13 Creatine Kinase 77 Troponin I 0.012 Impressions: Chest CT 10/11/16 00:00 IMPRESSION: Left upper lobar pneumonia. 7-[address] recommended. Lung Scan-VQ NM 10/11/16 00:00 IMPRESSION: NEGATIVE V/Q scan FOR PULMONARY EMBOLI. Venous Doppler Study 10/11/16 00:00 IMPRESSION: NO EVIDENCE DVT OR SVT IN EITHER LEG. Chest X-Ray 10/11/16 06:59 IMPRESSION: Improving pneumonia. 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
--- NOTE | 2016-10-13 19:09 | PDOC PROGRESS REPORT ---
Subjective Progress Note for:: 10/13/16 Subjective:: Patient seen today by the bedside, she told me she is improving slowly but surely. She may require home oxygen on discharge Physical Exam Vital Signs: Temp Pulse Resp BP Pulse Ox 97.3 F 73 16 135/62 H 93 10/13/16 07:29 10/13/16 14:00 10/13/16 10:41 10/13/16 07:29 10/13/16 10:41 Intake & Output 10/12/16 10/13/16 10/14/16 06:59 06:59 06:59 Intake Total 2195 2802 1470 Output Total 200 Balance 1994 2802 1470 Weight 95.4 kg General appearance: PRESENT: no acute distress Eye exam: PRESENT: PERRLA Respiratory exam: PRESENT: clear to auscultation cece Cardiovascular exam: PRESENT: +S1, +S2 GI/Abdominal exam: PRESENT: soft Neurological exam: PRESENT: alert Results Laboratory Results: 10/12/16 03:44 10/11/16 10/11/16 10/11/16 10:07 15:15 15:15 Creatine Kinase 64 Troponin I < 0.012 < 0.012 10/11/16 10/11/16 21:13 21:13 Creatine Kinase 77 Troponin I 0.012 Impressions: Chest CT 10/11/16 00:00 IMPRESSION: Left upper lobar pneumonia. 7-[address] recommended. Lung Scan-VQ NM 10/11/16 00:00 IMPRESSION: NEGATIVE V/Q scan FOR PULMONARY EMBOLI. Venous Doppler Study 10/11/16 00:00 IMPRESSION: NO EVIDENCE DVT OR SVT IN EITHER LEG. Chest X-Ray 10/11/16 06:59 IMPRESSION: Improving pneumonia. 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
[2016-10-13] MEDS: ATORVASTATIN CALCIUM 40 MG TABLET PO SCH (22:34)
[2016-10-14] MEDS: ENOXAPARIN SODIUM INJ 40 MG/0.4 ML DISP.SYRIN SUBCUT SCH (09:19)
[2016-10-14] MEDS: HYDROCHLOROTHIAZIDE 25 MG TABLET PO SCH (09:20)
[2016-10-14] MEDS: SITAGLIPTIN PHOSPHATE 50 MG TABLET PO SCH (09:20)
[2016-10-14] MEDS: CEFTRIAXONE 1 GM/D5W RTU 1 GM/50 ML RTUPB IV SCH (09:22)
[2016-10-14] MEDS: GLIMEPIRIDE 1 MG TABLET PO SCH (09:22)
[2016-10-14] MEDS: LOSARTAN POTASSIUM 50 MG TABLET PO SCH (09:22)
[2016-10-14] MEDS: ASPIRIN 81 MG TABLET, CHEWABLE PO SCH (09:23)
[2016-10-14] MEDS: METOPROLOL SUCCINATE 25 MG TAB.SR.24H PO SCH (09:23)
[2016-10-14] MEDS: NORMAL SALINE 1000 ML 1,000 ML IV PRN (10:45)
[2016-10-14] MEDS: LEVOFLOXACIN 500 MG/D5W RTU 500 MG/100 ML RTUPB IV SCH (14:36)
--- NOTE | 2016-10-14 18:33 | PDOC DISCHARGE SUMMARY ---
General - Admit/Disc Date/PCP Admission Date/Primary Care Provider: 10/11/16 09:03 AMANDA LOPEZ, Discharge Date: 10/15/16 - Discharge Diagnosis (1) Acute hypoxemic respiratory failure Is this a current diagnosis for this admission?: Yes (2) Pneumonia Is this a current diagnosis for this admission?: Yes (3) Type 2 diabetes mellitus Is this a current diagnosis for this admission?: Yes - Additional Information Resuscitation Status: Full Code Discharge Diet: Diabetic Discharge Activity: Activity As Tolerated Home Medications: Aspirin [Aspirin 81 mg Chewable Tablet] 81 mg PO DAILY 10/11/16 Atorvastatin Calcium 40 mg PO QHS 10/11/16 Glimepiride [Amaryl] 2 mg PO DAILY 10/11/16 Hydrochlorothiazide [Hydrodiuril 25 mg Tablet] 25 mg PO QAM 10/11/16 Losartan Potassium 100 mg PO DAILY 10/11/16 Metoprolol Succinate [Toprol Xl 25 mg Tab.sr] 25 mg PO DAILY 10/11/16 Sitagliptin Phosphate [Januvia] 100 mg PO DAILY 10/11/16 Albuterol Sulfate [Proair HFA] 1 - 2 puff IH Q4 PRN #1 inhaler 10/14/16 Levofloxacin [Levaquin 750 mg Tablet] 750 mg PO DAILY #10 tab 10/14/16 History of Present Illness History of Present Illness: JESSA QUINN is a 86 year old female with history of diabetes mellitus, she was recently discharged from this hospital on 10/08/2016 when she was admitted for acute hypoxemic respiratory failure due to pneumonia, she came to the emergency room because of shortness of breath, chest x-ray was done that showed improve aeration in the left upper lobe. Subsequent CT chest without contrast was done it showed moderate mixed, interstitial and airspace opacities predominantly in the left upper lobe. ABG was done that showed PO2 64.6 on 2 L. . A VQ scan was done it was negative for pulmonary embolism. Hospital Course Hospital Course: Patient was admitted because of acute hypoxemic respiratory failure due to pneumonia, she was initially admitted for pneumonia and she was discharged 2 days before this admission. She came back again with shortness of breath, that was hypoxemia, a VQ scan was done it was negative for pulmonary embolism. When she returned with the same symptoms that she had improved from last time she was admitted that was concerned she may have pulmonary embolism and a VQ scan was done. The VQ scan was negative for pulmonary embolism Physical Exam Vital Signs: Temp Pulse Resp BP Pulse Ox 97.3 F 61 22 H 149/56 H 95 10/14/16 11:54 10/14/16 14:00 10/14/16 11:54 10/14/16 11:54 10/14/16 11:54 Intake & Output 10/13/16 10/14/16 10/15/16 06:59 06:59 06:59 Intake Total 2802 3020 240 Output Total 700 Balance 2802 2320 240 Weight 95 kg General appearance: PRESENT: no acute distress, well-developed, well-nourished Head exam: PRESENT: atraumatic, normocephalic Eye exam: PRESENT: conjunctiva pink, EOMI, PERRLA Ear exam: PRESENT: normal external ear exam Mouth exam: PRESENT: moist, tongue midline Neck exam: PRESENT: full ROM Respiratory exam: PRESENT: clear to auscultation cece Cardiovascular exam: PRESENT: RRR, +S1, +S2 Pulses: PRESENT: normal dorsalis pedis pul, +2 pedal pulses bilateral Vascular exam: PRESENT: normal capillary refill GI/Abdominal exam: PRESENT: normal bowel sounds, soft Rectal exam: PRESENT: deferred Neurological exam: PRESENT: alert, awake, oriented to person, oriented to place , oriented to time, oriented to situation, CN II-XII grossly intact Psychiatric exam: PRESENT: appropriate affect, normal mood Skin exam: PRESENT: dry, intact, warm Results Laboratory Results: 10/12/16 03:44 10/11/16 09:23 Clean Catch Midstream Urine Culture - Final Staphylococcus Epidermidis 10/11/16 10/11/16 10/11/16 10:07 15:15 15:15 Creatine Kinase 64 Troponin I < 0.012 < 0.012 10/11/16 10/11/16 21:13 21:13 Creatine Kinase 77 Troponin I 0.012 Impressions: Chest CT 10/11/16 00:00 IMPRESSION: Left upper lobar pneumonia. 7-[address] recommended. Lung Scan-VQ NM 10/11/16 00:00 IMPRESSION: NEGATIVE V/Q scan FOR PULMONARY EMBOLI. Venous Doppler Study 10/11/16 00:00 IMPRESSION: NO EVIDENCE DVT OR SVT IN EITHER LEG. Chest X-Ray 10/11/16 06:59 IMPRESSION: Improving pneumonia.
[2016-10-14 19:20] LABS: HEMATOCRIT 33.5 % (36.0-47.0); HEMOGLOBIN 10.6 g/dL (12.0-15.5); HGB HCT DIFFERENCE -1.7; MEAN CORPUSCULAR HEMOGLOBIN 26.7 pg (27.0-33.4); MEAN CORPUSCULAR HGB CONC 31.7 g/dL (32.0-36.0); MEAN CORPUSCULAR VOLUME 84 fl (80-97); RED BLOOD COUNT 3.99 10^6/uL (3.72-5.28); RED CELL DISTRIBUTION WIDTH 14.2 % (11.5-14.0); WHITE BLOOD COUNT 11.3 10^3/uL (4.0-10.5)
[2016-10-14 19:42] LABS: BAND NEUTROPHILS % (MANUAL) 1 % (3-5); BASOPHILS % (MANUAL) 1 % (0-2); EOSINOPHILS % (MANUAL) 0 % (0-6); LYMPHOCYTES % (MANUAL) 15 % (13-45); TOTAL CELLS COUNTED 100
[2016-10-14 19:48] LABS: HYPOCHROMASIA SLIGHT
[2016-10-14 19:49] LABS: PLATELET CLUMPS PRESENT; TOXIC GRANULATION 1+; TOXIC VACUOLATION PRESENT
[2016-10-14 21:11] LABS: ALANINE AMINOTRANSFERASE 32 U/L (9-52); ALBUMIN 2.8 g/dL (3.5-5.0); ALKALINE PHOSPHATASE 71 U/L (38-126); ANION GAP 8 (5-19); ASPARTATE AMINO TRANSFERASE 18 U/L (14-36); BILIRUBIN,TOTAL 0.3 mg/dL (0.2-1.3); BLOOD UREA NITROGEN 22 mg/dL (7-20); CARBON DIOXIDE 30 mmol/L (22-30); CHLORIDE 100 mmol/L (98-107); CREATININE RESULT 1.08 mg/dL (0.52-1.25); GLUCOSE 132 mg/dL (75-110); POTASSIUM 3.9 mmol/L (3.6-5.0); TOTAL PROTEIN 5.3 g/dL (6.3-8.2)
[2016-10-14] MEDS: ATORVASTATIN CALCIUM 40 MG TABLET PO SCH (22:37)
[2016-10-15] MEDS: GLIMEPIRIDE 1 MG TABLET PO SCH (11:13)
[2016-10-15] MEDS: METOPROLOL SUCCINATE 25 MG TAB.SR.24H PO SCH (11:13)
[2016-10-15] MEDS: LOSARTAN POTASSIUM 50 MG TABLET PO SCH (11:13)
[2016-10-15] MEDS: SITAGLIPTIN PHOSPHATE 50 MG TABLET PO SCH (11:13)
[2016-10-15] MEDS: ASPIRIN 81 MG TABLET, CHEWABLE PO SCH (11:14)
[2016-10-15] MEDS: ENOXAPARIN SODIUM INJ 40 MG/0.4 ML DISP.SYRIN SUBCUT SCH (11:14)
[2016-10-15] MEDS: HYDROCHLOROTHIAZIDE 25 MG TABLET PO SCH (11:14)
[2016-10-15] MEDS: CEFTRIAXONE 1 GM/D5W RTU 1 GM/50 ML RTUPB IV SCH (11:14)
[2016-10-15 12:00] VITALS: BP 128/76
== END 2016-10-15 12:49 | disposition home or self-care (01) | DRG 193 ==
LOC: ER 06:54 → EH 09:03 → UNDOADMIN 09:20 → EH 09:20 → 3S 11:24
PROVIDERS: ADMIT Internal Medicine; ATTEND Internal Medicine
PROC: 3E0F73Z Introduction of Anti-inflammatory into Respiratory Tract, Via Natural or Artificial Opening (ICD-10-PCS; principal; 2016-10-12)
DX: J18.1 Lobar pneumonia, unspecified organism (principal); J96.01 Acute respiratory failure with hypoxia; E11.9 Type 2 diabetes mellitus without complications; I25.10 Atherosclerotic heart disease of native coronary artery without angina pectoris; I10 Essential (primary) hypertension; M19.90 Unspecified osteoarthritis, unspecified site; Z95.1 Presence of aortocoronary bypass graft; Z90.710 Acquired absence of both cervix and uterus; Z79.899 Other long term (current) drug therapy; Z87.891 Personal history of nicotine dependence; Z79.82 Long term (current) use of aspirin
CPT/HCPCS: 36415; 36600; 71010; 71250; 78582; 80053; 81001; 82550; 82803; 82962; 83605; 83735; 84100; 84439; 84443; 84484; 85025; 85379; 85610; 87040; 87086; 87088; 87186; 93005; 93010; 93970; 94640; 99291; A9540; A9567; J0696; J1650; J1956; J7030; J7614; J7620; Q9969

== ENCOUNTER → 2018-11-04 | Outpatient (CLI) | payer MEDICARE, OTHER ==
--- NOTE | 2018-11-04 13:52 | RADIOLOGY REPORT (SQ) ---
EXAM DESCRIPTION: MRI HEAD WITHOUT COMPLETED DATE/TIME: 11/04/2018 1:28 pm REASON FOR STUDY: CEREBRAL INFACRTION, UNSPECIFIED I63.9 CEREBRAL INFARCTION, UNSPECIFIED COMPARISON: None. TECHNIQUE: Multiplanar imaging includes non-contrasted T1, T2, FLAIR, and diffusion with ADC map seq uences. Images stored on PACS. LIMITATIONS: None. FINDINGS: ANATOMY: No anomalies. Normal vascular flow voids. Pituitary fossa normal. CSF SPACES: Atrophy induced prominence of ventricles and CSF spaces. 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 High signal intensity lesions scattered through out the white matter on FLAIR imaging with distribution suggesting micro-vascular ischemic changes. No evidence of hemorrhage, mass, or extraaxial fluid collection. POSTERIOR FOSSA: No signal alteration. No hemorrhage. No edema, masses or mass effect. Internal natalia tory canals, cerebello-pontine angles, mastoids normal. DIFFUSION IMAGING: Negative for acute or sub-acute infarction. ORBITS: No masses. Globes normal. PARANASAL SINUSES: No fluid levels. Mucosa normal. OTHER: No other significant finding. IMPRESSION: ATROPHY AND CHRONIC MICRO-VASCULAR ISCHEMIC CHANGES. OTHERWISE NORMAL MRI OF THE BRAIN W ITHOUT INTRAVENOUS GADOLINIUM CONTRAST. EVIDENCE OF ACUTE STROKE: NO. TECHNICAL DOCUMENTATION: JOB ID: [id number] [employer]- All Rights Reserved Reading location - IP/workstation name: [email or web address]
== END ==
LOC: RAD 11:50
PROVIDERS: ATTEND Internal Medicine
DX: I63.9 Cerebral infarction, unspecified (principal); G31.9 Degenerative disease of nervous system, unspecified
CPT/HCPCS: 70551